=== PATIENT | female | born 1980 | race Caucasian/White ===

== ENCOUNTER 2021-04-22 13:14 | Emergency (ER) | payer SELFPAY ==
--- NOTE | ~2021-04-22 | XR_ITS ---
EXAMINATION: XR chest 2V EXAM DATE: 04/22/2021 13:33 INDICATION: cp mid epigastric burning discomfort since this afternoon. TECHNIQUE: Frontal and lateral projections of the chest obtained and reviewed. Comparison is made to prior examination from 04/22/2021. FINDINGS: The lungs are clear. There are no pleural effusions. The cardiomediastinal silhouette is within normal limits. There is no pneumothorax suspected. The bones and soft tissues are unremarkab le. IMPRESSION: Normal chest x-ray exam. Reviewed, dictated and finalized at location A. IMPRESSION: Normal chest x-ray exam.
--- NOTE | 2021-04-22 13:16 | ECG_ITS ---
Measurements Intervals [place] Rate: 117 P: 59 IL: 164 QRS: 62 QRSD: 79 T: 46 QT: 343 QTc: 480 Interpretive Statements SINUS TACHYCARDIA LOW QRS VOLTAGE IN PRECORDIAL LEADS BORDERLINE ST-T WAVE ABNORMALITY- ANTEROLAT/INF LEADS BASELINE ARTIFACT- I, III, AVL ABNORMAL ECG Electronically Signed On 04-22-2021 13:34:40 CDT by Emmanuel Kaur D.O.
[2021-04-22 13:23] VITALS: BP 185/87; PULSE 118; RESP 20; TEMP 36.4; O2SAT 100
[2021-04-22 14:21] LABS: Basophils Absolute Auto 0.1 K/mm3 (0.0-0.1); Basophils Percent Auto 0.8 % (0.2-1.2); Eosinophils Absolute Auto 0.3 K/mm3 (0-0.3); Hematocrit 38.3 % (37.0-47.0); Hemoglobin 11.5 g/dL (12.0-15.0); Immature Granulocyte Absolute 0.08 K/mm3 (0.00-0.031); Immature Granulocyte Percent A 0.6 % (0-0.5); Lymphocytes Absolute Auto 2.81 K/mm3 (0.9-3.2); Lymphocytes Percent Auto 21.7 % (18.3-44.2); Mean Corpuscular Hemoglobin 22.2 pg (26-34); Mean Corpuscular Volume 74.1 fl (80-100); Mean Platelet Volume 9.4 fl (7.4-10.4); Monocytes Absolute Auto 0.9 K/mm3 (0.1-0.6); Monocytes Percent Auto 6.6 % (2.6-8.5); Neutrophils Absolute Auto 8.8 K/mm3 (1.3-6.7); Neutrophils Percent Auto 68.3 % (45.5-73.1); Platelet Count Result 393 k/mm3 (150-375); Red Blood Count 5.17 M/mm3 (4.2-5.4); Red Cell Distribution Width 19.2 % (11.5-14.5); White Blood Count 12.9 K/mm3 (4.5-10.0)
[2021-04-22 14:32] LABS: Prothrombin Time 12.7 Seconds (11.1-14.7)
[2021-04-22 14:33] LABS: Partial Thromboplastin Time 25.8 SECONDS (22.3-36.8)
[2021-04-22 14:36] LABS: Anion Gap 4 mmol/L (8-16); Blood Urea Nitrogen 9 mg/dL (7-17); Calcium 9.1 mg/dL (8.4-10.2); Carbon Dioxide 30 mmol/L (22-30); Chloride 107 mmol/L (98-107); Estimated CRCL calculation 125 ml/min; Estimated Glomerular Filt Rate > 60; Glucose 151 mg/dL (65-110); Potassium 4.1 mmol/L (3.4-5.0); Sodium 141 mmol/L (137-145)
[2021-04-22 14:48] LABS: Troponin I < 0.012 ng/mL (0.000-0.034)
--- NOTE | 2021-04-22 17:03 | ED.GENADULT ---
HPI - General Adult General Chief complaint: Chest Pain Stated complaint: cp Time Seen by Provider: 04/22/21 16:34 Source: patient and RN notes reviewed History of Present Illness HPI narrative: Patient is a 40 y/o female complaining of mid sternal chest pain starting 4-5 hours ago. She describes her pain as a burning sensation and rates it as 3/10. There is no known alleviating or exacerbating factor. Pain radiates to her throat. She has chronic cough which she attributed to smoking. She has no fever or SOB. Related Data Allergies Allergy/AdvReac Type Severity Reaction Status Date / Time amoxicillin Allergy Itching Verified 04/22/21 17:16 Penicillins Allergy Itching Verified 04/22/21 17:16 Review of Systems Constitutional: Constitutional: Denies chills, Denies fever(s), Denies headache(s) and Denies weakness Eyes: Eyes: Denies blurry vision ENT: Denies headache(s) and Denies neck pain Cardiovascular: Cardiovascular: Reports chest pain and Denies dyspnea Respiratory: Respiratory: Reports cough and Denies dyspnea Gastrointestinal: Gastrointestinal: Denies abdominal pain, Denies diarrhea, Denies nausea and Denies vomiting Genitourinary: Genitourinary: Denies hematuria and Denies dysuria Musculoskeletal: Musculoskeletal: Denies back pain and Denies neck pain Neurologic: Denies headache(s) and Denies weakness Exam Const: General: no acute distress and well developed Orientation/consciousness: oriented to person, oriented to place, oriented to time and patient oriented x3 HENMT: Head: normocephalic Ears: external ears normal General nose exam: Normal external nose present Eyes: General: appearance normal, both eyes and all related structures Conjunctivae: conjunctivae normal Neck: Neck: normal visual inspection and full ROM Chest: Chest palpation & inspection: normal inspection of the chest and no tenderness Resp: Effort & Inspection: normal respiratory effort Auscultation: clear to auscultation bilaterally Cardio: Rate: regular rate Rhythm: regular rhythm GI: GI Palp: No abdominal tenderness and Yes Soft to palpation Skin: General skin exam: normal color and turgor normal Neuro: General: oriented to person, oriented to place, oriented to time and patient oriented x3 Cognition (Neuro): normal cognition Extrem: General: normal to inspection, full ROM and no pedal edema Psych: Appearance: grossly normal Mental Status: mental status grossly normal Affect: normal affect Course Reevaluation(s) Reevaluation #1: Rechecked. Patient feels better. She state that she has no pain at this time. Date: 04/22/21 Time: 18:27 Vital Signs Vital signs: Vital Signs Temperature 36.4 C 04/22/21 13:23 Pulse Rate 118 H 04/22/21 13:23 Respiratory Rate 20 04/22/21 13:23 Blood Pressure 185/87 H 04/22/21 13:23 Pulse Oximetry 100 04/22/21 13:23 Temperature 36.4 C 04/22/21 13:23 Pulse Rate 87 04/22/21 18:40 Respiratory Rate 14 04/22/21 18:40 Blood Pressure 123/70 04/22/21 18:40 Pulse Oximetry 98 04/22/21 18:40 Medical Decision Making Vital Signs Vital Signs: Vital Signs Temperature 36.4 C 04/22/21 13:23 Pulse Rate 118 H 04/22/21 13:23 Respiratory Rate 20 04/22/21 13:23 Blood Pressure 185/87 H 04/22/21 13:23 Pulse Oximetry 100 04/22/21 13:23 Temperature 36.4 C 04/22/21 13:23 Pulse Rate 87 04/22/21 18:40 Respiratory Rate 14 04/22/21 18:40 Blood Pressure 123/70 04/22/21 18:40 Pulse Oximetry 98 04/22/21 18:40 Lab Data Result diagrams: 04/22/21 14:13 04/22/21 14:13 Labs: Lab Results 04/22/21 04/22/21 04/22/21 Range/Units 14:12 14:13 14:13 WBC 12.9 H (4.5-10.0) K/mm3 RBC 5.17 (4.2-5.4) M/mm3 Hgb 11.5 L (12.0-15.0) g/dL Hct 38.3 (37.0-47.0) % MCV 74.1 L (80-100) fl MCH 22.2 L (26-34) pg MCHC 30.0 L (32-36) g/dl RDW 19.2 H (11.5-14.5) % Plt Count 393 H (150-375)
[2021-04-22 17:21] VITALS: BP 180/100; PULSE 82; PULSE 92; RESP 16; O2SAT 100
[2021-04-22 17:47] LABS: Troponin I < 0.012 ng/mL (0.000-0.034)
--- NOTE | 2021-04-22 18:09 | PC.NURSE ---
added Marcellus Ramachandran onto lab. talked to Mara in Lab.
[2021-04-22 18:40] VITALS: BP 123/70; PULSE 87; RESP 14; O2SAT 98
== END 2021-04-22 18:42 | disposition home or self-care (01) ==
PROVIDERS: Emergency Medicine; Emergency Provider Emergency Medicine
DX: I10 Essential (primary) hypertension (principal); R07.9 Chest pain, unspecified; R00.0 Tachycardia, unspecified
CPT/HCPCS: 36415; 71046; 80048; 84484; 85025; 85380; 85610; 85730; 93005; 99284